=== PATIENT | female | born 1980 | race African-American/Black ===

== ENCOUNTER 2018-05-27 22:08 | Observation (INO) ==
[2018-05-27] MEDS ORDERED: ONDANSETRON 4 MG/2 ML VIAL IV STA (22:44)
[2018-05-27] MEDS ORDERED: KETOROLAC 30 MG/1 ML VIAL IV STA (22:44)
[2018-05-27] MEDS ORDERED: SODIUM CHLORIDE 0.9% 500 ML IV STA (22:44)
[2018-05-27] MEDS ORDERED: hydrALAZINE 20 MG/1 ML VIAL IV STA (22:45)
[2018-05-27 23:13] LABS: Basophils % 0.8 % (0.0-0.8); Eosinophils # 0.1 10*3/uL (0.0-0.87); Eosinophils % 2.9 % (0.00-10.9); Hematocrit 30.1 VOL% (35.7-47.0); Hemoglobin 9.4 GM/DL (12.0-16.0); Immature Granulocytes % 0.2 %; Immature Granulocytes Absolute 0.01 #; Lymphocytes # 1.2 10*3/uL (1.4-4.0); Lymphocytes % 24.5 % (21.3-54.2); Mean Corpuscular HGB Conc 31.2 GM/DL (32-36); Mean Corpuscular Hemoglobin 29 PG (27-34); Mean Corpuscular Volume 92.9 FL (87-102); Mean Platelet Volume 10.2 FL (9.6-12.0); Monocytes # 0.3 10*3/uL (0.11-0.8); Monocytes % 5.8 % (1.7-12.7); Neutrophils # 3.2 10*3/uL (1.4-7.4); Neutrophils % 65.8 % (38.7-73.9); Platelet Count 172 T/CUMM (130-400); Red Blood Count 3.24 MC/CUMM (3.8-5.5); Red Cell Distribution Width 17.9 % (9.3-17.3); White Blood Count 4.8 T/CUMM (4-12)
[2018-05-28 00:11] LABS: Apearance,Urine Slightly Hazy (Clear); Bacteria,Urine Occasional /HPF (Few); Bilirubin,Urine Negative (Negative); Blood, Urine Small mg/dL (Negative); Glucose,Urine (UA) Negative (Negative); Hyaline Casts,Urine 1 /LPF (0-3); Ketones,Urine Negative (Negative); Mucus,Urine Occasional /LPF (Occasional); Nitrite,Urine Negative (Negative); Protein,Urine Negative; RBC,Urine 5 /HPF (0-4); Squamous Epithelial Cell,Urine Occasional /HPF (0-10); Urine Color Yellow (Yellow); Urine Specific Gravity 1.029 (1.001-1.035); Urine Urobilinogen < 2.0 EU/DL (0.2-1.0); WBC,Urine 4 /HPF (0-6)
[2018-05-28 00:13] LABS: Albumin 3.9 G/DL (3.4-5.0); Bilirubin,Total 0.4 MG/DL (0.2-1.0); Free T4 (Free Thyroxine) 0.37 NG/DL (0.76-1.46); Potassium 3.3 MMOL/L (3.5-5.1); Total Protein 8.3 G/DL (6.4-8.3)
[2018-05-28] MEDS ORDERED: ACETAMINOPHEN 325 MG TABLET PO PRN (01:25)
[2018-05-28] MEDS ORDERED: ONDANSETRON 4 MG/2 ML VIAL IV PRN (01:25)
[2018-05-28] MEDS ORDERED: PROMETHAZINE 25 MG/1 ML VIAL IM PRN (01:25)
[2018-05-28] MEDS ORDERED: POTASSIUM CHLORIDE 20 MEQ TABLET PO PRN (01:38)
[2018-05-28] MEDS ORDERED: cefTRIAXone 1,000 MG in SYRINGE 1 EACH IV SCH (02:30)
[2018-05-28 02:43] LABS: Alanine Aminotransferase 31 U/L (13-56); Albumin 3.6 G/DL (3.4-5.0); Alkaline Phosphatase 27 U/L (45-117); Aspartate Amino Transferase 23 U/L (0-37); Bilirubin,Total < 0.39 MG/DL (0.2-1.0); Blood Urea Nitrogen 13 MG/DL (7-18); Calcium 7.9 MG/DL (8.5-10.1); Glucose 83 MG/DL (74-106); Potassium 3.5 MMOL/L (3.5-5.1); Sodium 136 MMOL/L (136-145); Total Protein 7.9 G/DL (6.4-8.3)
[2018-05-28] MEDS ORDERED: LEVOTHYROXINE 100 MCG VIAL IV ONE (03:00)
[2018-05-28] MEDS ORDERED: ENOXAPARIN 40 MG/0.4 ML SYRINGE SUBCUT SCH (09:00)
[2018-05-28 11:19] VITALS: BP 110/84
[2018-05-29] MEDS ORDERED: LEVOTHYROXINE 100 MCG VIAL IV SCH (06:30)
== END 2018-05-28 14:08 | disposition home or self-care (01) ==
LOC: N.ED 22:08 → INTOOBSV 05-28 01:13 → N.EDINP 05-28 01:13 → N.2E 05-28 02:00
PROVIDERS: ADMIT Internal Medicine Geriatric Medicine; ATTEND Internal Medicine Geriatric Medicine

== ENCOUNTER 2020-06-20 16:05 | Inpatient (IN) ==
[2020-06-20 16:55] LABS: Basophils % 0.4 % (0.0-0.8); Eosinophils # 0.1 10*3/uL (0.0-0.87); Eosinophils % 2.4 % (0.00-10.9); Hematocrit 26.8 VOL% (35.7-47.0); Hemoglobin 8.5 GM/DL (12.0-16.0); Immature Granulocytes % 0.4 %; Immature Granulocytes Absolute 0.02 #; Lymphocytes # 1.4 10*3/uL (1.4-4.0); Lymphocytes % 31.6 % (21.3-54.2); Mean Corpuscular HGB Conc 31.7 GM/DL (32-36); Mean Corpuscular Volume 85.1 FL (87-102); Mean Platelet Volume 10.7 FL (9.6-12.0); Monocytes % 5.9 % (1.7-12.7); Neutrophils % 59.3 % (38.7-73.9); Platelet Count 195 T/CUMM (130-400); Red Blood Count 3.15 MC/CUMM (3.8-5.5); Red Cell Distribution Width 16.9 % (9.3-17.3); White Blood Count 4.6 T/CUMM (4-12)
[2020-06-20] MEDS ORDERED: LABETALOL 100 MG TABLET ONE (17:04)
[2020-06-20] MEDS ORDERED: LABETALOL 200 MG TABLET ONE (17:04)
[2020-06-20] MEDS: LABETALOL 100 MG TABLET PO SCH (17:06)
[2020-06-20 17:09] LABS: PT Patient Result 10.3 SECS (9.8-11.9); Partial Thromboplastin Time 26.8 SECS (23.9-33.8)
[2020-06-20 17:16] LABS: Alanine Aminotransferase 10 U/L (13-56); Albumin 2.2 G/DL (3.4-5.0); Alkaline Phosphatase 71 U/L (45-117); Aspartate Amino Transferase 13 U/L (0-37); Bilirubin,Total < 0.39 MG/DL (0.2-1.0); Blood Urea Nitrogen 5 MG/DL (7-18); Carbon Dioxide 23 MMOL/L (21-32); Estimated Glom Filtration Rate 178 ML/MIN; Glucose 60 MG/DL (74-106); Osmolality,Calculated 269.7 MOS/KG (273-304); Potassium 3.1 MMOL/L (3.5-5.1); Sodium 138 MMOL/L (136-145); Total Protein 6.8 G/DL (6.4-8.3); Uric Acid 5.2 MG/DL (2.6-6.0)
[2020-06-20] MEDS ORDERED: BUTORPHANOL 1 MG/ML VIAL IV PRN (17:17)
[2020-06-20] MEDS ORDERED: ONDANSETRON 4 MG/2 ML VIAL IV PRN (17:17)
[2020-06-20] MEDS ORDERED: MEPERIDINE 50 MG/1 ML VIAL IM PRN (17:17)
[2020-06-20 17:26] LABS: Bacteria,Urine Occasional /HPF (Few); Bilirubin,Urine Negative (Negative); Blood, Urine Negative (Negative); Glucose,Urine (UA) Negative (Negative); Ketones,Urine Negative (Negative); Mucus,Urine Few /LPF (Occasional); Nitrite,Urine Negative (Negative); Protein,Urine 30 MG/DL; RBC,Urine 3 /HPF (0-4); Squamous Epithelial Cell,Urine Moderate /HPF (0-10); Urine Appearance CLOUDY (Clear); Urine Color Yellow (Yellow); Urine Specific Gravity 1.016 (1.001-1.035); Urine Urobilinogen < 2.0 EU/DL (0.2-1.0); WBC,Urine 5 /HPF (0-6)
[2020-06-20] MEDS: LACTATED RINGERS 1,000 ML IV SCH ×2 (17:41→22:57)
[2020-06-20] MEDS ORDERED: MEPERIDINE 50 MG/1 ML VIAL IV PRN (21:33)
[2020-06-20] MEDS ORDERED: TERBUTALINE 1 MG/1 ML VIAL SUBCUT ONE (21:58)
[2020-06-20] MEDS ORDERED: TERBUTALINE 1 MG/1 ML VIAL ONE (21:58)
[2020-06-20] MEDS ORDERED: LACTATED RINGERS 1,000 ML IV SCH (23:45)
[2020-06-20] MEDS ORDERED: fentaNYL 2 MCG/ROPIV 0.2% EPID 100 ML EPIDURAL SCH (23:45)
[2020-06-20] MEDS ORDERED: ePHEDrine 50 MG/ML VIAL IV PRN (23:59)
[2020-06-20] MEDS ORDERED: diphenhydrAMINE 50 MG/1 ML VIAL IV PRN ×2 (23:59)
[2020-06-20] MEDS ORDERED: PROMETHAZINE 25 MG/1 ML VIAL IM ONE (23:59)
[2020-06-20] MEDS ORDERED: LACTATED RINGERS 250 ML IV PRN (23:59)
[2020-06-20] MEDS ORDERED: FAMOTIDINE 20 MG/2 ML VIAL IV ONE (23:59)
[2020-06-20] MEDS ORDERED: NALOXONE 0.4 MG/ML VIAL IV PRN (23:59)
[2020-06-20] MEDS ORDERED: CITRIC ACID/SODIUM CITRATE 30 ML UDCUP PO ONE (23:59)
[2020-06-20] MEDS ORDERED: hydrOXYzine HCL 25 MG/1 ML VIAL IM PRN (23:59)
[2020-06-21] MEDS: LABETALOL 100 MG TABLET PO SCH ×3 (00:22→21:33)
[2020-06-21] MEDS ORDERED: OXYTOCIN/LR 20 UNIT/1,000 ML BAG IV SCH (00:30)
[2020-06-21] MEDS ORDERED: LIDOCAINE 1% 50 ML VIAL ONE (00:55)
[2020-06-21] MEDS ORDERED: LANOLIN 50% CREAM 0.3 OZ TUBE TOP PRN (01:03)
[2020-06-21] MEDS ORDERED: HYDROCORTISONE 2.5% RECTAL CREAM 30 GM TUBE TOP PRN (01:03)
[2020-06-21] MEDS ORDERED: ACETAMINOPHEN 325 MG TABLET PO PRN (01:03)
[2020-06-21] MEDS ORDERED: RHO(D) IMMUNE GLOBULIN 300 MCG SYRINGE IM ONE (01:03)
[2020-06-21] MEDS ORDERED: OXYTOCIN/LR 20 UNIT/1,000 ML BAG IV ONE (01:03)
[2020-06-21] MEDS ORDERED: BISACODYL 10 MG SUPP RECTAL PRN (01:03)
[2020-06-21] MEDS ORDERED: BENZOCAINE 20%/MENTHOL 0.5% SPRAY 56 GM CAN TOP PRN (01:03)
[2020-06-21] MEDS ORDERED: WITCH HAZEL PADS 100/JAR TOP PRN (01:03)
[2020-06-21] MEDS ORDERED: DIPH/TET/ACEL PERT BOOSTER VACCINE 0.5 ML VIAL IM ONE (01:03)
[2020-06-21] MEDS ORDERED: ONDANSETRON 4 MG/2 ML VIAL IV PRN (01:03)
[2020-06-21] MEDS ORDERED: MEASLES/MUMPS/RUBELLA VACCINE 0.5 ML VIAL SUBCUT ONE (01:03)
[2020-06-21 01:06] LABS: Cord Arterial Blood HCO3 21.6 MMOL/L
[2020-06-21 01:09] LABS: Cord Venous Blood HCO3 23.3 MMOL/L; Cord Venous Blood PCO2 49.4 MMHG; Cord Venous Blood PO2 25.3
[2020-06-21] MEDS: AMPICILLIN INJ 2,000 MG in SODIUM CHLORIDE 0.9% 100 ML IV SCH ×4 (03:05→21:40)
[2020-06-21] MEDS: LACTATED RINGERS 1,000 ML IV SCH (05:10)
[2020-06-21 05:37] LABS: Basophils % 0.3 % (0.0-0.8); Eosinophils # 0.1 10*3/uL (0.0-0.87); Eosinophils % 1.1 % (0.00-10.9); Hematocrit 26.4 VOL% (35.7-47.0); Hemoglobin 8.2 GM/DL (12.0-16.0); Immature Granulocytes % 0.5 %; Immature Granulocytes Absolute 0.03 #; Lymphocytes # 1.4 10*3/uL (1.4-4.0); Lymphocytes % 22.2 % (21.3-54.2); Mean Corpuscular HGB Conc 31.1 GM/DL (32-36); Mean Corpuscular Volume 85.2 FL (87-102); Mean Platelet Volume 11.7 FL (9.6-12.0); Monocytes % 6.8 % (1.7-12.7); Neutrophils % 69.1 % (38.7-73.9); Platelet Count 199 T/CUMM (130-400); Red Cell Distribution Width 16.6 % (9.3-17.3); White Blood Count 6.4 T/CUMM (4-12)
[2020-06-21] MEDS: IBUPROFEN 800 MG TABLET PO PRN (07:04)
[2020-06-21] MEDS: oxyCODONE/ACETAMINOPHEN 5-325 MG TABLET PO PRN ×3 (07:05→23:24)
[2020-06-21] MEDS ORDERED: LABETALOL 200 MG TABLET PO SCH (08:00)
[2020-06-21] MEDS ORDERED: LABETALOL 100 MG TABLET PO SCH ×2 (08:00)
[2020-06-21] MEDS: DOCUSATE SODIUM 100 MG CAPSULE PO SCH ×2 (08:12→21:33)
[2020-06-22] MEDS: AMPICILLIN INJ 2,000 MG in SODIUM CHLORIDE 0.9% 100 ML IV SCH (03:10)
[2020-06-22] MEDS: LABETALOL 100 MG TABLET PO SCH ×3 (06:09→22:00)
[2020-06-22] MEDS: oxyCODONE/ACETAMINOPHEN 5-325 MG TABLET PO PRN ×4 (06:15→20:30)
[2020-06-22] MEDS: POTASSIUM CHLORIDE 20 MEQ TABLET PO PRN ×3 (07:03→11:11)
[2020-06-22] MEDS ORDERED: FUROSEMIDE 40 MG/4 ML VIAL IV ONE (08:24)
[2020-06-22] MEDS: DOCUSATE SODIUM 100 MG CAPSULE PO SCH ×2 (09:15→22:00)
[2020-06-22] MEDS: IBUPROFEN 800 MG TABLET PO PRN ×2 (14:27→23:37)
[2020-06-22] MEDS ORDERED: SERTRALINE 50 MG TABLET PO SCH (21:00)
[2020-06-23] MEDS: LABETALOL 100 MG TABLET PO SCH ×2 (06:03→13:45)
[2020-06-23] MEDS: oxyCODONE/ACETAMINOPHEN 5-325 MG TABLET PO PRN ×2 (06:17→12:40)
[2020-06-23] MEDS: DOCUSATE SODIUM 100 MG CAPSULE PO SCH (09:15)
[2020-06-23 09:52] VITALS: BP 146/100
== END 2020-06-23 14:25 | disposition home or self-care (01) | DRG 560 ==
LOC: N.LDOUT 16:05 → N.LD 16:09 → N.OB 06-21 12:19
PROVIDERS: ADMIT Specialist; ATTEND Specialist

== ENCOUNTER 2020-09-13 10:33 | Observation (INO) ==
[2020-09-13 12:07] LABS: % Iron Saturation 32.9 % (18-50); Albumin 2.9 G/DL (3.4-5.0); Bilirubin,Total 1.2 MG/DL (0.2-1.0); Calcium 8.7 MG/DL (8.5-10.1); Ferritin 96.6 ng/ml (8-252); Osmolality,Calculated 275.5 MOS/KG (273-304); Potassium 4.1 MMOL/L (3.5-5.1)
[2020-09-13 12:52] LABS: Hepatitis B Core IgM Quant 0.08 Index; Hepatitis B Surface Ag Quant < 0.10 Index; Hepatitis B Surface Ag Result Non-Reactive (NonReactive); Hepatitis C Virus Ab Quant 0.16 Index; Hepatitis C Virus Ab Result Non-Reactive (NonReactive); Vitamin B12 1173 PG/ML (211-911)
[2020-09-13] MEDS ORDERED: ONDANSETRON 4 MG/2 ML VIAL IV PRN ×2 (14:16→19:25)
[2020-09-13] MEDS ORDERED: DICYCLOMINE 20 MG TABLET PO PRN (14:17)
[2020-09-13] MEDS ORDERED: SODIUM CHLORIDE 0.45% 1,000 ML IV SCH (14:30)
[2020-09-13] MEDS ORDERED: MESALAMINE 800 MG TABLET PO SCH (15:00)
[2020-09-13] MEDS ORDERED: MAGNESIUM HYDROXIDE SUSP 30 ML UDCUP PO PRN (19:24)
[2020-09-13] MEDS ORDERED: MULTIVITAMIN (CENTRUM) TABLET PO SCH (21:00)
[2020-09-13] MEDS ORDERED: LABETALOL 100 MG TABLET PO SCH (21:00)
[2020-09-13] MEDS ORDERED: MESALAMINE 1000 MG SUPP RECTAL SCH ×2 (21:00)
[2020-09-13] MEDS ORDERED: SERTRALINE 50 MG TABLET PO SCH ×2 (21:00)
[2020-09-13] MEDS: LABETALOL 100 MG TABLET PO SCH (21:37)
[2020-09-13] MEDS: MESALAMINE 800 MG TABLET PO SCH (21:37)
[2020-09-13] MEDS: DICYCLOMINE 20 MG TABLET PO PRN (21:37)
[2020-09-13] MEDS: SODIUM CHLORIDE 0.45% 1,000 ML IV SCH (23:55)
[2020-09-14] MEDS: SODIUM CHLORIDE 0.45% 1,000 ML IV SCH ×2 (04:31→14:32)
[2020-09-14] MEDS ORDERED: LEVOTHYROXINE 125 MCG TABLET PO SCH ×2 (06:30)
[2020-09-14] MEDS: LABETALOL 100 MG TABLET PO SCH (08:17)
[2020-09-14] MEDS: MESALAMINE 800 MG TABLET PO SCH ×2 (08:17→14:52)
[2020-09-14] MEDS: DICYCLOMINE 20 MG TABLET PO PRN (08:44)
[2020-09-14] MEDS ORDERED: MULTIVITAMIN (CENTRUM) TABLET PO SCH (09:00)
[2020-09-14] MEDS ORDERED: methylPREDNISolone SOD SUC 40 MG/1 ML VIAL IV SCH ×2 (09:00)
[2020-09-14 11:37] VITALS: BP 102/64
== END 2020-09-14 15:10 | disposition home or self-care (01) ==
LOC: N.5E → EDSTATUS 17:33
PROVIDERS: ADMIT Internal Medicine Gastroenterology; ATTEND Internal Medicine Gastroenterology